=== PATIENT | male | born 1980 | race Caucasian/White ===

== ENCOUNTER 2020-11-19 05:44 | Emergency (ER) | payer OTHER ==
[~2020-11-19] VITALS: Ht 177.8 cm; Wt 122.7 kg
[2020-11-19 05:59] VITALS: BP 152/82
== END 2020-11-19 06:19 | disposition left against medical advice (07) ==
LOC: EMS 05:44
DX: R13.10 Dysphagia, unspecified (principal); Z53.21 Procedure and treatment not carried out due to patient leaving prior to being seen by health care provider